=== PATIENT | female | born 1995 | race Caucasian/White ===

== ENCOUNTER 2020-09-26 20:46 | Emergency (ER) | payer OTHER ==
[~2020-09-26] VITALS: Ht 160 cm; Wt 77.3 kg
[2020-09-26 20:53] VITALS: BP 114/73
[2020-09-26] MEDS ORDERED: LIDOcaine 1% W/epiNEPHrine 1:200,000 10ml vial IJ ONE (21:30)
[2020-09-26] MEDS ORDERED: LIDOcaine 1% W/epiNEPHrine 1:100,000 20ml vial IJ ONE (21:35)
[2020-09-26] MEDS ORDERED: CEPH500C2 PO (23:44)
== END 2020-09-26 23:57 | disposition home or self-care (01) ==
LOC: ER 20:47
DX: S71.112A Laceration without foreign body, left thigh, initial encounter (principal); W18.39XA Other fall on same level, initial encounter; Y93.89 Activity, other specified; Y92.89 Other specified places as the place of occurrence of the external cause; Y99.8 Other external cause status
CPT/HCPCS: 12002; 99283